=== PATIENT | male | born 1965 | race Caucasian/White ===

== ENCOUNTER 2019-06-15 15:40 | Outpatient (CLI) | payer MEDICAID | END 2019-06-15 15:41 | disposition EMS.NT | LOC: EMS 15:40 | PROVIDERS: ATTEND Surgery | DX: Z04.1 Encounter for examination and observation following transport accident (principal) ==

== ENCOUNTER 2021-07-29 10:40 | Outpatient (CLI) | payer MEDICAID ==
--- NOTE | 2021-07-29 17:36 | XRAY Report ---
PROCEDURE: Thoracic Spine 2 View INDICATIONS: UPPER BACK PX TECHNIQUE: 2 views of the thoracic spine were acquired. COMPARISON: None. FINDINGS: Bones: No fractures or dislocations. No suspicious bony lesions. 12 pairs of ribs are noted, and a ppear intact where visualized. Moderate degenerative disc changes noted throughout the thoracic spine . Mild facet hypertrophy noted throughout the thoracic spine. Soft tissues: No paravertebral stripe thickening. IMPRESSION: 1. Multilevel degenerative disc disease. 2. Multilevel facet arthropathy. 3. No fracture. No acute osseous lesion. If there is continued clinical concern for pathology, then M RI should be considered for further evaluation. Reviewed by: Melanie Kim MD, PhD on 07/29/2021 5:35 PM PDT Approved by: Melanie Kim MD, PhD on 07/29/2021 5:35 PM PDT Station ID: [id number]
--- NOTE | 2021-07-29 17:37 | XRAY Report ---
PROCEDURE: Ribs 4 View RT INDICATIONS: R RIB PX TECHNIQUE: 4 views of the right ribs were acquired. COMPARISON: None FINDINGS: Surgical changes and devices: None. Bones and chest wall: No fractures or dislocations. No suspicious bony lesions. Overlying soft tis sues appear unremarkable. Lungs and pleura: The visualized lung appears clear. No pleural effusions or pneumothorax are visib le. IMPRESSION: No displaced rib fracture. Reviewed by: Melanie Kim MD, PhD on 07/29/2021 5:36 PM PDT Approved by: Melanie Kim MD, PhD on 07/29/2021 5:36 PM PDT Station ID: [id number]
== END 2021-07-29 10:41 | disposition home or self-care (01) ==
LOC: DI.N 10:40
PROVIDERS: ATTEND Family Medicine
DX: R07.81 Pleurodynia (principal); M47.814 Spondylosis without myelopathy or radiculopathy, thoracic region; M51.34 Other intervertebral disc degeneration, thoracic region